=== PATIENT | female | born 1985 | race Caucasian/White ===

== ENCOUNTER 2019-03-07 05:50 | Day surgery (SDC) | payer OTHER ==
[~2019-03-07] VITALS: Ht 165.1 cm; Wt 80.7 kg
[2019-03-07 06:30] LABS: HCG,QUAL RESULT NEGATIVE (NEGATIVE)
[2019-03-07] MEDS ORDERED: CEFAZOLIN SOD 1 GM in D5W 50 ML IV ONE (07:00)
[2019-03-07] MEDS ORDERED: IOHEXOL 50 ML IV ONE (07:57)
[2019-03-07] MEDS ORDERED: D5/0.45 NS 1,000 ML IV SCH (09:06)
[2019-03-07] MEDS ORDERED: HYDROmorphone 1 MG INJ. 1 MG/ML AMPUL IVP PRN ×2 (09:15→10:00)
[2019-03-07] MEDS ORDERED: HYDROcodone/ACETAMIN 5-325 MG TAB (NORCO/ VICODIN) PO PRN ×2 (09:15)
[2019-03-07] MEDS ORDERED: LR 1,000 ML IV SCH (09:59)
[2019-03-07] MEDS ORDERED: HYDROmorphone 2 MG/ML VIAL IVP PRN ×2 (10:00)
[2019-03-07] MEDS ORDERED: MEPERIDINE HCL/PF 25 MG/ML DISP.SYRIN IVP PRN (10:00)
[2019-03-07] MEDS ORDERED: HYDROmorphone 1 MG INJ. 1 MG/ML AMPUL IVP ONE (10:00)
[2019-03-07] MEDS ORDERED: HYDROcodone/ACETAMIN 5-325 MG TAB (NORCO/ VICODIN) ONE (10:32)
[2019-03-07 13:19] VITALS: BP_SYST 119
== END 2019-03-07 11:15 | disposition home or self-care (01) ==
LOC: SMU 05:50 → SDS 05:50
PROVIDERS: ATTEND Colon & Rectal Surgery
DX: K80.10 Calculus of gallbladder with chronic cholecystitis without obstruction (principal); E66.9 Obesity, unspecified
CPT/HCPCS: 47563; 84703; 88304; C1727; C1758; J0690; J7060; J7120; Q9967; 76000